=== PATIENT | male | born 1960 | race Caucasian/White ===

== ENCOUNTER 2024-01-01 15:26 | Inpatient (IN) | payer MEDICARE, MEDICAID ==
[~2024-01-01] VITALS: Ht 193 cm; Wt 67.1 kg
[2024-01-02] VITALS: BP 127/64; TEMP 97; O2SAT 93
[2024-01-02] MEDS ORDERED: GLUCOSE 4GM CHEW TABLET PO PRN (00:10)
[2024-01-02] MEDS ORDERED: DEXTROSE 50% 50ML SYRINGE IV PRN (00:10)
[2024-01-02] MEDS ORDERED: GLUCAGON INJ 1MG VIAL SC PRN (00:10)
[2024-01-02] MEDS: INSULIN LISPRO (NovoLOG) PER UNIT SC SCH (00:38)
[2024-01-02] MEDS: NS 1,000 ML IV SCH (00:39)
[2024-01-02] MEDS ORDERED: TRAZ-252 PO (00:47)
[2024-01-02] MEDS ORDERED: METF10004 PO (00:47)
[2024-01-02] MEDS ORDERED: LEVO50TA5 PO (00:47)
[2024-01-02] MEDS ORDERED: JARD1TAB3 PO (00:47)
[2024-01-02] MEDS ORDERED: ZOLO100T PO (00:47)
[2024-01-02] MEDS ORDERED: GABA-282 PO (00:47)
[2024-01-02] MEDS ORDERED: BUPR150T12 PO (00:47)
[2024-01-02] MEDS ORDERED: FERR1TAB8 PO (00:47)
[2024-01-02] MEDS ORDERED: OMEP-173 PO (00:47)
[2024-01-02] MEDS ORDERED: GLIP5TAB17 PO (00:47)
[2024-01-02] MEDS ORDERED: ASPI81TA26 PO (00:47)
[2024-01-02] MEDS ORDERED: VITA-158 PO (00:47)
[2024-01-02] MEDS ORDERED: ROSU20TA61 PO (00:47)
[2024-01-02] MEDS ORDERED: HOME MED LIST COMPLETE! XX SCH (00:50)
[2024-01-02 00:56] LABS: HEMATOCRIT 29.2 % (42.0-52.0); HEMOGLOBIN 9.1 g/dl (13.5-17.5); MEAN CORPUSCULAR HEMOGLOBIN 24.2 pg (27.0-33.0); MEAN CORPUSCULAR HGB CONC 31.2 g/dl (32.0-36.5); MEAN CORPUSCULAR VOLUME 77.7 fl (80.0-96.0); PLATELET COUNT, AUTOMATED 374 10^3/uL (150-450); RED BLOOD COUNT 3.76 10^6/uL (4.30-6.10)
[2024-01-02 01:08] LABS: INR 1.22
[2024-01-02 01:17] LABS: ALBUMIN 2.3 G/DL (3.2-5.2); ALKALINE PHOSPHATASE 101 U/L (46-116); ALT/SGPT 99 U/L (7.0-40); AST/SGOT 70 U/L (<34); BILIRUBIN,TOTAL 0.2 MG/DL (0.3-1.2); BLOOD UREA NITROGEN 34 MG/DL (9-23); CALCIUM LEVEL 8.2 MG/DL (8.3-10.6); CARBON DIOXIDE LEVEL 30 MMOL/L (20-31); CHLORIDE LEVEL 104 MMOL/L (98-107); CREATININE FOR GFR 1.05 MG/DL (0.70-1.30); GLOMERULAR FILTRATION RATE > 60.0 (>49); GLUCOSE, FASTING 194 MG/DL (74-106); POTASSIUM SERUM 4.7 MMOL/L (3.5-5.1); SODIUM LEVEL 137 MMOL/L (136-145); TOTAL PROTEIN 6.2 G/DL (5.7-8.2)
[2024-01-02 01:20] LABS: EOS % 0.2 % (0.0-3.0); LYMPH # 1.2 10^3/uL (1.5-5.0); LYMPH % 18.6 % (24.0-44.0); MONO # 0.4 10^3/uL (0.0-0.8); MONO % 6.8 % (2.0-8.0); NEUTROPHILS # 4.6 10^3/uL (1.5-8.5); NEUTROPHILS % 73.4 % (36.0-66.0)
[2024-01-02 01:24] LABS: PROCALCITONIN 0.16 ng/ml
[2024-01-02 01:36] LABS: ERYTHROCYTE SEDIMENTATION RATE 114 mm/hr (0-20)
[2024-01-02 01:46] LABS: PLATELET ESTIMATE NORMAL (NORMAL)
[2024-01-02] MEDS: PIPERACILLIN/TAZOBACTAM SOD 3.375 GM in D5W MINI-BAG PLUS 50 ML IV SCH (04:35)
[2024-01-02] MEDS: LINEZOLID 600 MG in IV 1 EA IV SCH (05:34)
[2024-01-02 06:00] VITALS: BP 101/54; TEMP 97.5; O2SAT 98
[2024-01-02 13:34] VITALS: BP 106/57; TEMP 97.5; O2SAT 100
[2024-01-02 22:00] VITALS: BP 104/57; TEMP 97.1; O2SAT 99
[2024-01-03 05:41] VITALS: BP 103/57; TEMP 97.4; O2SAT 98
[2024-01-03 07:18] LABS: HEMATOCRIT 30.3 % (42.0-52.0); HEMOGLOBIN 9.2 g/dl (13.5-17.5); MEAN CORPUSCULAR HEMOGLOBIN 23.4 pg (27.0-33.0); MEAN CORPUSCULAR HGB CONC 30.4 g/dl (32.0-36.5); MEAN CORPUSCULAR VOLUME 77.1 fl (80.0-96.0); PLATELET COUNT, AUTOMATED 351 10^3/uL (150-450); RED BLOOD COUNT 3.93 10^6/uL (4.30-6.10); WHITE BLOOD COUNT 6.8 10^3/uL (4.0-10.0)
[2024-01-03 07:44] LABS: ALBUMIN 2.3 G/DL (3.2-5.2); ALKALINE PHOSPHATASE 112 U/L (46-116); ALT/SGPT 81 U/L (7.0-40); AST/SGOT 55 U/L (<34); BILIRUBIN,TOTAL 0.3 MG/DL (0.3-1.2); BLOOD UREA NITROGEN 22 MG/DL (9-23); CALCIUM LEVEL 8.2 MG/DL (8.3-10.6); CARBON DIOXIDE LEVEL 28 MMOL/L (20-31); CHLORIDE LEVEL 105 MMOL/L (98-107); GLOMERULAR FILTRATION RATE > 60.0 (>49); GLUCOSE, FASTING 200 MG/DL (74-106); MAGNESIUM LEVEL 1.8 MG/DL (1.8-2.4); POTASSIUM SERUM 4.6 MMOL/L (3.5-5.1); SODIUM LEVEL 137 MMOL/L (136-145); TOTAL PROTEIN 6.1 G/DL (5.7-8.2)
[2024-01-03 10:51] VITALS: BP 126/66
[2024-01-03] MEDS ORDERED: LIDOCAINE 2% 100MG/5ML SDV (FOR ANES.) As Ordered ONE (11:03)
[2024-01-03] MEDS ORDERED: propofoL 200 MG/20 ML VIAL As Ordered ONE (11:03)
[2024-01-03] MEDS ORDERED: MIDAZOLAM INJ 2MG/2ML VIAL As Ordered ONE (11:03)
[2024-01-03] MEDS ORDERED: fentaNYL 100 MCG/2 ML INJECTION As Ordered ONE (11:03)
[2024-01-03] MEDS ORDERED: ceFAZolin 1GM VIAL As Ordered ONE (13:40)
[2024-01-03 14:06] VITALS: BP 121/63; TEMP 97.7; O2SAT 98
[2024-01-04] VITALS (9 sets, daily range): BP systolic 82–118; BP diastolic 60–68; TEMP 97.5–98; O2SAT 97–100
[2024-01-04 08:13] LABS: HEMATOCRIT 32.2 % (42.0-52.0); HEMOGLOBIN 9.7 g/dl (13.5-17.5)
[2024-01-04] MEDS ORDERED: ONDANSETRON 4MG 2ML VIAL As Ordered ONE (09:26)
[2024-01-04] MEDS ORDERED: KETOROLAC 60MG 2ML VIAL As Ordered ONE (09:26)
[2024-01-04] MEDS ORDERED: ROCURONIUM BROMIDE 50MG/5ML VIAL As Ordered ONE (10:17)
[2024-01-04] MEDS ORDERED: SUGAMMADEX SODIUM 500 MG/5 ML VIAL (BRIDION) As Ordered ONE (10:18)
[2024-01-04] MEDS: ceFAZolin 2 GM/D5W 50 ML IV BAG As Ordered ONE (12:40)
[2024-01-04] MEDS ORDERED: HYDROmorphone HCL 2MG/ML 1ML VIAL As Ordered ONE (12:49)
[2024-01-04] MEDS ORDERED: VASOPRESSIN INJ 20UNITS/ML 1ML VIAL As Ordered ONE (13:02)
[2024-01-04] MEDS ORDERED: PHENYLephrine 500MCG 5ML (100MCG/ML) SYRINGE As Ordered ONE (13:04)
[2024-01-04] MEDS ORDERED: ePHEDrine SULFATE 25 MG/5 ML(5MG/ML) SYRINGE As Ordered ONE (13:04)
[2024-01-04] MEDS ORDERED: KETAMINE HCL 200MG/20ML VIAL As Ordered ONE (13:22)
[2024-01-04] MEDS ORDERED: PHENYLEPHRINE 10MG/ML 1ML VIAL As Ordered ONE (13:48)
[2024-01-04] MEDS ORDERED: oxyCODONE 5MG TAB PO PRN (14:20)
[2024-01-04] MEDS ORDERED: diphenhydrAMINE 50MG/ML VIAL IV PRN (14:20)
[2024-01-04] MEDS ORDERED: METOCLOPRAMIDE INJ 10MG/2ML VIAL IV PRN (14:20)
[2024-01-04] MEDS ORDERED: HYDROMORPHONE HCL 0.5 MG/ 0.5 ML SYRINGE IV PRN (14:20)
[2024-01-04] MEDS ORDERED: fentaNYL 100 MCG/2 ML INJECTION IV PRN (14:20)
[2024-01-04] MEDS ORDERED: MEPERIDINE 25 MG/ML 1ML VIAL IV PRN (14:20)
[2024-01-04] MEDS ORDERED: ONDANSETRON 4MG 2ML VIAL IV PRN (14:20)
[2024-01-04] MEDS: MORPHINE 2 MG/ML 1ML VIAL IV PRN (18:03)
[2024-01-04] MEDS ORDERED: NALOXONE INJ 0.4MG/1ML VIAL IV PRN (18:55)
[2024-01-04] MEDS: HYDROMORPHONE HCL 0.5 MG/ 0.5 ML SYRINGE IV PRN (20:42)
[2024-01-05 02:00] VITALS: BP 106/61; TEMP 97.9; O2SAT 99
[2024-01-05] MEDS ORDERED: GLUCAGON INJ 1MG VIAL SC PRN (03:25)
[2024-01-05] MEDS ORDERED: DEXTROSE 50% 50ML SYRINGE IV PRN (03:25)
[2024-01-05] MEDS ORDERED: GLUCOSE 4GM CHEW TABLET PO PRN (03:25)
[2024-01-05 05:10] VITALS: BP 111/60; TEMP 97.7; O2SAT 99
[2024-01-05] MEDS ORDERED: PERCOCET 5MG/325MG TAB PO PRN ×2 (07:50)
[2024-01-05] MEDS: INSULIN LISPRO (NovoLOG) PER UNIT SC SCH ×2 (08:24)
[2024-01-05] MEDS: OMEPRAZOLE 20MG CAP PO SCH (08:25)
[2024-01-05] MEDS: FERROUS SULFATE 325MG TAB PO SCH (08:25)
[2024-01-05] MEDS: LEVOTHYROXINE 50MCG TABLET (0.05MG) PO SCH (08:25)
[2024-01-05] MEDS: ROSUVASTATIN 10 MG TAB (CRESTOR) PO SCH (08:25)
[2024-01-05] MEDS: ASPIRIN 81MG ENTERIC TABLET PO SCH (08:25)
[2024-01-05] MEDS: LEVEMIR (INSULIN DETEMIR) 1 UNITS/0.01ML SC ONE (08:25)
[2024-01-05] MEDS: ASCORBIC ACID 500 MG TAB PO SCH (08:25)
[2024-01-05] MEDS: PERCOCET 5MG/325MG TAB PO ONE (08:26)
[2024-01-05] MEDS ORDERED: PHENYLephrine 500MCG 5ML (100MCG/ML) SYRINGE ONE (08:32)
[2024-01-05] MEDS ORDERED: ePHEDrine SULFATE 25 MG/5 ML(5MG/ML) SYRINGE ONE (08:32)
[2024-01-05] MEDS ORDERED: GABAPENTIN 300 MG CAP PO SCH (09:00)
[2024-01-05] MEDS ORDERED: SERTRALINE 100 MG TAB PO SCH (09:00)
[2024-01-05] MEDS: glipiZIDE (GLUCOTROL) 5 MG TAB PO SCH (09:43)
[2024-01-05] MEDS: KETOROLAC 30 MG/ML 1ML VIAL IV ONE (09:43)
[2024-01-05 10:15] VITALS: BP 103/62; TEMP 97.9; O2SAT 99
[2024-01-05] MEDS ORDERED: ZOSY1SOL5 IV (10:19)
[2024-01-05] MEDS ORDERED: [UNRECOGNIZED DRUG - CODE] PO (10:19)
[2024-01-05] MEDS ORDERED: PERCOCET PO ×2 (10:20)
[2024-01-05] MEDS ORDERED: INSULIN LISPRO (NovoLOG) PER UNIT SC SCH (21:00)
== END 2024-01-05 14:45 | disposition other institution (70) | DRG 617 ==
LOC: M MS5PR 23:17
PROVIDERS: ADMIT Internal Medicine; ATTEND General Practice
PROC: 30233N1 Transfusion of Nonautologous Red Blood Cells into Peripheral Vein, Percutaneous Approach (ICD-10-PCS; 2024-01-04)
PROC: 30233J1 Transfusion of Nonautologous Serum Albumin into Peripheral Vein, Percutaneous Approach (ICD-10-PCS; 2024-01-04)
PROC: 0Y6J0Z3 Detachment at Left Lower Leg, Low, Open Approach (ICD-10-PCS; principal; 2024-01-04 08:00)
DX: E11.69 Type 2 diabetes mellitus with other specified complication (principal); M86.8X7 Other osteomyelitis, ankle and foot; L03.116 Cellulitis of left lower limb; L97.429 Non-pressure chronic ulcer of left heel and midfoot with unspecified severity; D62 Acute posthemorrhagic anemia; K21.9 Gastro-esophageal reflux disease without esophagitis; F32.A Depression, unspecified; E78.5 Hyperlipidemia, unspecified; E11.42 Type 2 diabetes mellitus with diabetic polyneuropathy; I73.9 Peripheral vascular disease, unspecified; E11.51 Type 2 diabetes mellitus with diabetic peripheral angiopathy without gangrene; Z87.891 Personal history of nicotine dependence; Z79.82 Long term (current) use of aspirin; Z79.890 Hormone replacement therapy; Z79.84 Long term (current) use of oral hypoglycemic drugs; Z79.899 Other long term (current) drug therapy; Z88.1 Allergy status to other antibiotic agents; I10 Essential (primary) hypertension

== ENCOUNTER 2024-01-05 11:42 | Inpatient (IN) | payer MEDICARE, MEDICAID ==
[~2024-01-05] VITALS: Ht 193 cm; Wt 72.5 kg
[~2024-01-05 11:42] MED LIST: ASPI81TA26 PO; BUPR150T12 PO; FERR1TAB8 PO; GABA-282 PO; GLIP5TAB17 PO; JARD1TAB3 PO; LEVO50TA5 PO; METF10004 PO; OMEP-173 PO; PERCOCET PO; ROSU20TA61 PO; TRAZ-252 PO; VITA-158 PO; ZOLO100T PO; ZOSY1SOL5 IV; [UNRECOGNIZED DRUG - CODE] PO
[2024-01-05 14:12] VITALS: BP 105/55; TEMP 97.3; O2SAT 100
[2024-01-05] MEDS ORDERED: MAALOX 30 ML SUSP *UDC PO PRN (14:20)
[2024-01-05] MEDS ORDERED: SIMETHICONE 80MG CHEW TAB PO PRN (14:20)
[2024-01-05] MEDS ORDERED: ONDANSETRON 4MG TAB PO PRN (14:20)
[2024-01-05] MEDS: GABAPENTIN 300 MG CAP PO SCH (17:34)
[2024-01-05] MEDS: PERCOCET 5MG/325MG TAB PO PRN (19:38)
[2024-01-05 20:00] VITALS: BP 99/54; TEMP 97.6; O2SAT 99
[2024-01-05] MEDS: traZODone 50 MG TAB PO SCH (20:48)
[2024-01-05] MEDS: metFORMIN (GLUCOPHAGE) 1000MG TABLET PO SCH (20:48)
[2024-01-06] VITALS (10 sets, daily range): BP systolic 95–119; BP diastolic 56–64; TEMP 97.1–98.6; O2SAT 97–100
[2024-01-06] MEDS: LEVOTHYROXINE 50MCG TABLET (0.05MG) PO SCH (06:17)
[2024-01-06 07:21] LABS: HEMATOCRIT 22.7 % (42.0-52.0); MEAN CORPUSCULAR HEMOGLOBIN 26.6 pg (27.0-33.0); MEAN CORPUSCULAR HGB CONC 32.6 g/dl (32.0-36.5); MEAN CORPUSCULAR VOLUME 81.7 fl (80.0-96.0); PLATELET COUNT, AUTOMATED 229 10^3/uL (150-450); RED BLOOD COUNT 2.78 10^6/uL (4.30-6.10); WHITE BLOOD COUNT 6.3 10^3/uL (4.0-10.0)
[2024-01-06 07:27] LABS: HEMOGLOBIN 7.4 g/dl (13.5-17.5)
[2024-01-06 07:38] LABS: BLOOD UREA NITROGEN 19 MG/DL (9-23); CALCIUM LEVEL 8.1 MG/DL (8.3-10.6); CARBON DIOXIDE LEVEL 29 MMOL/L (20-31); CHLORIDE LEVEL 105 MMOL/L (98-107); CREATININE FOR GFR 0.91 MG/DL (0.70-1.30); GLOMERULAR FILTRATION RATE > 60.0 (>49); GLUCOSE, FASTING 275 MG/DL (74-106); POTASSIUM SERUM 4.6 MMOL/L (3.5-5.1); SODIUM LEVEL 137 MMOL/L (136-145)
[2024-01-06] MEDS ORDERED: GLUCOSE 4GM CHEW TABLET PO PRN (08:05)
[2024-01-06] MEDS ORDERED: GLUCAGON INJ 1MG VIAL SC PRN (08:05)
[2024-01-06] MEDS ORDERED: DEXTROSE 50% 50ML SYRINGE IV PRN (08:05)
[2024-01-06] MEDS: FERROUS SULFATE 325MG TAB PO SCH (08:39)
[2024-01-06] MEDS: OMEPRAZOLE 20MG CAP PO SCH (08:39)
[2024-01-06] MEDS: buPROPion **XL** TABLET 150MG (WELLBUTRIN XL) PO SCH (08:40)
[2024-01-06] MEDS: ASPIRIN 81MG ENTERIC TABLET PO SCH (08:40)
[2024-01-06] MEDS: SERTRALINE 100 MG TAB PO SCH (08:40)
[2024-01-06] MEDS: ROSUVASTATIN 10 MG TAB (CRESTOR) PO SCH (08:40)
[2024-01-06] MEDS: DAPAGLIFLOZIN PROPANEDIOL 10MG TABLET (FARXIGA) PO SCH (08:40)
[2024-01-06] MEDS: ASCORBIC ACID 500 MG TAB PO SCH (08:40)
[2024-01-06 12:23] LABS: HEMATOCRIT 25.1 % (42.0-52.0)
[2024-01-06] MEDS: traZODone 25MG PER 1/2 TABLET PO SCH (20:45)
[2024-01-07 00:23] VITALS: BP 116/58; TEMP 97.7; O2SAT 99
[2024-01-07 06:00] VITALS: BP 115/62; TEMP 97.5; O2SAT 98
[2024-01-07] MEDS: MIRALAX *UNIT DOSE* 17GM PACKET PO PRN (13:11)
[2024-01-07 14:00] VITALS: BP 108/61; TEMP 97.5; O2SAT 97
[2024-01-07 20:00] VITALS: BP 117/61; TEMP 97.9; O2SAT 97
[2024-01-08 03:09] VITALS: BP 134/71; O2SAT 99
[2024-01-08 06:00] VITALS: BP 118/65; TEMP 97.4; O2SAT 96
[2024-01-08 06:14] LABS: HEMATOCRIT 31.7 % (42.0-52.0); MEAN CORPUSCULAR HEMOGLOBIN 26.5 pg (27.0-33.0); MEAN CORPUSCULAR HGB CONC 32.5 g/dl (32.0-36.5); MEAN CORPUSCULAR VOLUME 81.7 fl (80.0-96.0); PLATELET COUNT, AUTOMATED 240 10^3/uL (150-450); RED BLOOD COUNT 3.88 10^6/uL (4.30-6.10); WHITE BLOOD COUNT 7.2 10^3/uL (4.0-10.0)
[2024-01-08 06:19] LABS: HEMOGLOBIN 10.3 g/dl (13.5-17.5)
[2024-01-08 06:37] LABS: BLOOD UREA NITROGEN 24 MG/DL (9-23); CALCIUM LEVEL 8.7 MG/DL (8.3-10.6); CARBON DIOXIDE LEVEL 32 MMOL/L (20-31); CHLORIDE LEVEL 104 MMOL/L (98-107); CREATININE FOR GFR 0.88 MG/DL (0.70-1.30); GLOMERULAR FILTRATION RATE > 60.0 (>49); GLUCOSE, FASTING 204 MG/DL (74-106); POTASSIUM SERUM 4.5 MMOL/L (3.5-5.1); SODIUM LEVEL 140 MMOL/L (136-145)
[2024-01-08] MEDS: BISACODYL 5MG TAB PO PRN (09:08)
[2024-01-08 20:00] VITALS: BP 124/59; TEMP 97.1; O2SAT 98
[2024-01-08] MEDS: LEVEMIR (INSULIN DETEMIR) 1 UNITS/0.01ML SC SCH (21:39)
[2024-01-09 04:00] VITALS: BP 106/57; TEMP 97.3; O2SAT 96
[2024-01-09 14:00] VITALS: BP 112/63; TEMP 97.6; O2SAT 98
[2024-01-09 20:00] VITALS: BP 120/65; TEMP 97.8; O2SAT 99
[2024-01-10 05:25] VITALS: BP 112/64; TEMP 97.1; O2SAT 97
[2024-01-10] MEDS: MOM 30ML SUSPENSION UDC PO PRN (08:26)
[2024-01-10 14:00] VITALS: BP 119/62; TEMP 97.1; O2SAT 97
[2024-01-10 19:31] VITALS: BP 123/8; TEMP 97.6; O2SAT 97
[2024-01-11 06:00] VITALS: BP 109/63; TEMP 97.8; O2SAT 96
[2024-01-11] MEDS: INSULIN LISPRO (NovoLOG) PER UNIT SC SCH ×2 (11:49→21:00)
[2024-01-11 14:00] VITALS: BP 107/62; TEMP 98; O2SAT 98
[2024-01-11] MEDS ORDERED: BISACODYL 10MG SUPP PR PRN (17:00)
[2024-01-11] MEDS: MIRALAX *UNIT DOSE* 17GM PACKET PO SCH (17:16)
[2024-01-11 20:25] VITALS: BP 118/65; TEMP 97.8; O2SAT 96
[2024-01-11] MEDS: PERCOCET 5MG/325MG TAB PO PRN (20:36)
[2024-01-12 05:33] VITALS: BP 113/63; TEMP 97.6; O2SAT 96
[2024-01-12] MEDS: ACETAMINOPHEN TAB 650MG DOSE (2X325MG) PO PRN (09:34)
[2024-01-12 10:09] LABS: HEMATOCRIT 35.4 % (42.0-52.0); HEMOGLOBIN 11.2 g/dl (13.5-17.5); MEAN CORPUSCULAR HEMOGLOBIN 27.1 pg (27.0-33.0); MEAN CORPUSCULAR HGB CONC 31.6 g/dl (32.0-36.5); MEAN CORPUSCULAR VOLUME 85.5 fl (80.0-96.0); PLATELET COUNT, AUTOMATED 324 10^3/uL (150-450); RED BLOOD COUNT 4.14 10^6/uL (4.30-6.10); WHITE BLOOD COUNT 8.7 10^3/uL (4.0-10.0)
[2024-01-12 10:40] LABS: BLOOD UREA NITROGEN 23 MG/DL (9-23); CARBON DIOXIDE LEVEL 30 MMOL/L (20-31); CHLORIDE LEVEL 98 MMOL/L (98-107); CREATININE FOR GFR 0.96 MG/DL (0.70-1.30); GLOMERULAR FILTRATION RATE > 60.0 (>49); GLUCOSE, FASTING 296 MG/DL (74-106); POTASSIUM SERUM 4.6 MMOL/L (3.5-5.1); SODIUM LEVEL 134 MMOL/L (136-145)
[2024-01-12 14:00] VITALS: BP 108/60; TEMP 97.6; O2SAT 98
[2024-01-12] MEDS: GABAPENTIN 300 MG CAP PO SCH ×2 (17:11→20:12)
[2024-01-12 20:00] VITALS: BP 109/61; TEMP 98.1; O2SAT 97
[2024-01-13 06:00] VITALS: BP 107/61; TEMP 97.5; O2SAT 97
[2024-01-13] MEDS ORDERED: GABAPENTIN 300 MG CAP PO SCH (09:00)
[2024-01-13 14:00] VITALS: BP 101/58; TEMP 97.8; O2SAT 98
[2024-01-13 20:00] VITALS: BP 114/61; TEMP 98; O2SAT 99
[2024-01-14 06:00] VITALS: BP 102/60; TEMP 97.6; O2SAT 98
[2024-01-14] MEDS ORDERED: BACLOFEN 5MG PER 1/2 TABLET PO PRN (13:15)
[2024-01-14 14:00] VITALS: BP 90/54; TEMP 98.6; O2SAT 98
[2024-01-14 19:50] VITALS: BP 102/59; TEMP 97.7; O2SAT 97
[2024-01-14] MEDS: NYSTATIN 100,000 UNITS/GM TOPICAL PWD 15GM TOP SCH (20:19)
[2024-01-15 05:30] VITALS: BP 96/51; TEMP 97.5; O2SAT 99
[2024-01-15 14:22] VITALS: BP 105/57; TEMP 97; O2SAT 100
[2024-01-15] MEDS ORDERED: diphenhydrAMINE CREAM 30GM TOP PRN (14:35)
[2024-01-15 20:00] VITALS: BP 107/58; TEMP 97.5; O2SAT 98
[2024-01-16 06:00] VITALS: BP 106/59; TEMP 97.1; O2SAT 98
[2024-01-16 14:00] VITALS: BP 96/54; TEMP 98.2; O2SAT 95
[2024-01-16 20:00] VITALS: BP 104/58; TEMP 97.4; O2SAT 98
[2024-01-17 06:00] VITALS: BP 96/55; TEMP 97.4; O2SAT 98
[2024-01-17 14:00] VITALS: BP 112/59; TEMP 97.9; O2SAT 99
[2024-01-17 20:00] VITALS: BP 107/61; TEMP 98.1; O2SAT 98
[2024-01-18 06:00] VITALS: BP 105/59; TEMP 98.1; O2SAT 100
[2024-01-18 06:17] LABS: HEMATOCRIT 33.7 % (42.0-52.0); HEMOGLOBIN 10.7 g/dl (13.5-17.5); MEAN CORPUSCULAR HGB CONC 31.8 g/dl (32.0-36.5); MEAN CORPUSCULAR VOLUME 84.9 fl (80.0-96.0); PLATELET COUNT, AUTOMATED 235 10^3/uL (150-450); RED BLOOD COUNT 3.97 10^6/uL (4.30-6.10); WHITE BLOOD COUNT 4.7 10^3/uL (4.0-10.0)
[2024-01-18 06:46] LABS: BLOOD UREA NITROGEN 24 MG/DL (9-23); CALCIUM LEVEL 8.9 MG/DL (8.3-10.6); CARBON DIOXIDE LEVEL 32 MMOL/L (20-31); CHLORIDE LEVEL 105 MMOL/L (98-107); CREATININE FOR GFR 0.95 MG/DL (0.70-1.30); GLOMERULAR FILTRATION RATE > 60.0 (>49); GLUCOSE, FASTING 99 MG/DL (74-106); POTASSIUM SERUM 4.3 MMOL/L (3.5-5.1); SODIUM LEVEL 142 MMOL/L (136-145)
[2024-01-18] MEDS ORDERED: DIPHCR TOP (10:25)
[2024-01-18] MEDS ORDERED: NYST10006 TOP (10:25)
[2024-01-18] MEDS ORDERED: GABA-282 PO ×2 (10:25)
[2024-01-18] MEDS ORDERED: INSUDET SC (10:25)
== END 2024-01-18 14:00 | DRG 74 ==
LOC: M PM&R 14:12
PROVIDERS: ADMIT Physical Medicine & Rehabilitation; ATTEND Student in an Organized Health Care Education/Training Program
PROC: 30233N1 Transfusion of Nonautologous Red Blood Cells into Peripheral Vein, Percutaneous Approach (ICD-10-PCS; principal; 2024-01-06)
DX: E11.42 Type 2 diabetes mellitus with diabetic polyneuropathy (principal); M86.8X7 Other osteomyelitis, ankle and foot; N17.9 Acute kidney failure, unspecified; K21.9 Gastro-esophageal reflux disease without esophagitis; F32.A Depression, unspecified; E78.5 Hyperlipidemia, unspecified; E11.69 Type 2 diabetes mellitus with other specified complication; K59.00 Constipation, unspecified; R35.0 Frequency of micturition; B36.9 Superficial mycosis, unspecified; G89.21 Chronic pain due to trauma; E11.65 Type 2 diabetes mellitus with hyperglycemia; M24.562 Contracture, left knee; L89.152 Pressure ulcer of sacral region, stage 2; E11.51 Type 2 diabetes mellitus with diabetic peripheral angiopathy without gangrene; G54.6 Phantom limb syndrome with pain; D64.9 Anemia, unspecified; R53.1 Weakness; Z89.512 Acquired absence of left leg below knee; Z79.82 Long term (current) use of aspirin; Z79.84 Long term (current) use of oral hypoglycemic drugs; Z79.890 Hormone replacement therapy; Z79.899 Other long term (current) drug therapy; Z88.1 Allergy status to other antibiotic agents; Z74.1 Need for assistance with personal care; Z74.09 Other reduced mobility; Z87.891 Personal history of nicotine dependence

== ENCOUNTER → 2024-01-19 | Outpatient (REF) | payer MEDICAID, MEDICARE ==
[~2024-01-19] MED LIST changes: +DIPHCR TOP; +INSUDET SC; +NYST10006 TOP
[2024-01-19 07:37] LABS: HEMATOCRIT 34.3 % (42.0-52.0); HEMOGLOBIN 10.9 g/dl (13.5-17.5); MEAN CORPUSCULAR HEMOGLOBIN 27.4 pg (27.0-33.0); MEAN CORPUSCULAR HGB CONC 31.8 g/dl (32.0-36.5); MEAN CORPUSCULAR VOLUME 86.2 fl (80.0-96.0); PLATELET COUNT, AUTOMATED 252 10^3/uL (150-450); RED BLOOD COUNT 3.98 10^6/uL (4.30-6.10); WHITE BLOOD COUNT 6.2 10^3/uL (4.0-10.0)
[2024-01-19 08:04] LABS: BLOOD UREA NITROGEN 22 MG/DL (9-23); CALCIUM LEVEL 8.6 MG/DL (8.3-10.6); CARBON DIOXIDE LEVEL 32 MMOL/L (20-31); CHLORIDE LEVEL 104 MMOL/L (98-107); CREATININE FOR GFR 0.87 MG/DL (0.70-1.30); GLOMERULAR FILTRATION RATE > 60.0 (>49); GLUCOSE, FASTING 138 MG/DL (74-106); POTASSIUM SERUM 4.3 MMOL/L (3.5-5.1); SODIUM LEVEL 140 MMOL/L (136-145)
== END ==
LOC: SKLAB4 09:09
PROVIDERS: ATTEND Nurse Practitioner Family
DX: D64.9 Anemia, unspecified (principal)

== ENCOUNTER → 2024-01-26 | Outpatient (REF) ==
[2024-01-26 09:00] LABS: HEMOGLOBIN 11.6 g/dl (13.5-17.5); MEAN CORPUSCULAR HGB CONC 32.2 g/dl (32.0-36.5); MEAN CORPUSCULAR VOLUME 86.7 fl (80.0-96.0); PLATELET COUNT, AUTOMATED 208 10^3/uL (150-450); RED BLOOD COUNT 4.15 10^6/uL (4.30-6.10); WHITE BLOOD COUNT 3.9 10^3/uL (4.0-10.0)
[2024-01-26 09:25] LABS: BLOOD UREA NITROGEN 28 MG/DL (9-23); CALCIUM LEVEL 9.3 MG/DL (8.3-10.6); CARBON DIOXIDE LEVEL 33 MMOL/L (20-31); CHLORIDE LEVEL 106 MMOL/L (98-107); CREATININE FOR GFR 0.88 MG/DL (0.70-1.30); GLOMERULAR FILTRATION RATE > 60.0 (>49); GLUCOSE, FASTING 107 MG/DL (74-106); POTASSIUM SERUM 4.2 MMOL/L (3.5-5.1); SODIUM LEVEL 139 MMOL/L (136-145)
== END ==
LOC: SKLAB4 08:35
PROVIDERS: ATTEND Nurse Practitioner Family
DX: E78.5 Hyperlipidemia, unspecified (principal); E11.9 Type 2 diabetes mellitus without complications

== ENCOUNTER → 2024-02-09 | Outpatient (REF) ==
[2024-02-09 08:50] LABS: HEMATOCRIT 31.4 % (42.0-52.0); HEMOGLOBIN 9.8 g/dl (13.5-17.5); MEAN CORPUSCULAR HEMOGLOBIN 27.5 pg (27.0-33.0); MEAN CORPUSCULAR HGB CONC 31.2 g/dl (32.0-36.5); PLATELET COUNT, AUTOMATED 138 10^3/uL (150-450); RED BLOOD COUNT 3.57 10^6/uL (4.30-6.10); WHITE BLOOD COUNT 5.6 10^3/uL (4.0-10.0)
[2024-02-09 09:05] LABS: BLOOD UREA NITROGEN 36 MG/DL (9-23); CALCIUM LEVEL 8.5 MG/DL (8.3-10.6); CARBON DIOXIDE LEVEL 28 MMOL/L (20-31); CHLORIDE LEVEL 104 MMOL/L (98-107); CREATININE FOR GFR 0.87 MG/DL (0.70-1.30); GLOMERULAR FILTRATION RATE > 60.0 (>49); GLUCOSE, FASTING 112 MG/DL (74-106); POTASSIUM SERUM 4.3 MMOL/L (3.5-5.1); SODIUM LEVEL 139 MMOL/L (136-145)
== END ==
LOC: SKLAB4 08:04
PROVIDERS: ATTEND Nurse Practitioner Family
DX: E11.51 Type 2 diabetes mellitus with diabetic peripheral angiopathy without gangrene (principal); E78.5 Hyperlipidemia, unspecified

== ENCOUNTER → 2024-02-11 | Outpatient (REF) ==
[2024-02-11 13:54] LABS: BASO % 0.3 % (0.0-1.0); EOS # 0.2 10^3/uL (0.0-0.5); EOS % 3.2 % (0.0-3.0); HEMATOCRIT 33.8 % (42.0-52.0); HEMOGLOBIN 10.6 g/dl (13.5-17.5); LYMPH # 0.6 10^3/uL (1.5-5.0); LYMPH % 8.4 % (24.0-44.0); MEAN CORPUSCULAR HEMOGLOBIN 27.9 pg (27.0-33.0); MEAN CORPUSCULAR HGB CONC 31.4 g/dl (32.0-36.5); MEAN CORPUSCULAR VOLUME 88.9 fl (80.0-96.0); MONO # 0.7 10^3/uL (0.0-0.8); MONO % 9.1 % (2.0-8.0); NEUTROPHILS # 5.7 10^3/uL (1.5-8.5); NEUTROPHILS % 78.6 % (36.0-66.0); PLATELET COUNT, AUTOMATED 151 10^3/uL (150-450); WHITE BLOOD COUNT 7.3 10^3/uL (4.0-10.0)
[2024-02-11 14:03] LABS: ERYTHROCYTE SEDIMENTATION RATE 78 mm/hr (0-20)
[2024-02-11 14:25] LABS: TOTAL IRON BINDING CAPACITY 245 UG/DL (250-425)
[2024-02-11 14:26] LABS: ALBUMIN 3.4 G/DL (3.2-5.2); ALKALINE PHOSPHATASE 105 U/L (46-116); ALT/SGPT 18 U/L (7.0-40); AST/SGOT 17 U/L (<34); BILIRUBIN,TOTAL 0.5 MG/DL (0.3-1.2); BLOOD UREA NITROGEN 32 MG/DL (9-23); CALCIUM LEVEL 9.2 MG/DL (8.3-10.6); CARBON DIOXIDE LEVEL 32 MMOL/L (20-31); CHLORIDE LEVEL 101 MMOL/L (98-107); CREATININE FOR GFR 1.02 MG/DL (0.70-1.30); GLOMERULAR FILTRATION RATE > 60.0 (>49); GLUCOSE, FASTING 247 MG/DL (74-106); IRON (FE) 10 UG/DL (65-175); PERCENT SATURATION 4.1 % (19.7-50.0); POTASSIUM SERUM 5.1 MMOL/L (3.5-5.1); SODIUM LEVEL 139 MMOL/L (136-145)
[2024-02-11 14:28] LABS: FERRITIN 432.4 NG/ML (10.5-307.3)
== END ==
LOC: SKLAB4 12:56
PROVIDERS: ATTEND Nurse Practitioner Family
DX: R53.1 Weakness (principal); I95.9 Hypotension, unspecified; D64.9 Anemia, unspecified; M24.851 Other specific joint derangements of right hip, not elsewhere classified; I77.89 Other specified disorders of arteries and arterioles; Z89.512 Acquired absence of left leg below knee

== ENCOUNTER → 2024-02-11 | Outpatient (REF) | LOC: SKLAB4 10:59 | PROVIDERS: ATTEND Nurse Practitioner Family | DX: R32 Unspecified urinary incontinence (principal) ==

== ENCOUNTER → 2024-02-12 | Outpatient (REF) | payer MEDICAID, MEDICARE | LOC: SKLAB4 13:03 | PROVIDERS: ATTEND Nurse Practitioner Family | DX: D64.9 Anemia, unspecified (principal) ==

== ENCOUNTER → 2024-02-15 | Outpatient (REF) ==
[2024-02-15 12:11] LABS: HEMATOCRIT 31.2 % (42.0-52.0); MEAN CORPUSCULAR HEMOGLOBIN 27.9 pg (27.0-33.0); MEAN CORPUSCULAR HGB CONC 32.1 g/dl (32.0-36.5); MEAN CORPUSCULAR VOLUME 87.2 fl (80.0-96.0); PLATELET COUNT, AUTOMATED 203 10^3/uL (150-450); RED BLOOD COUNT 3.58 10^6/uL (4.30-6.10); WHITE BLOOD COUNT 4.4 10^3/uL (4.0-10.0)
[2024-02-15 12:40] LABS: BLOOD UREA NITROGEN 34 MG/DL (9-23); CALCIUM LEVEL 9.4 MG/DL (8.3-10.6); CARBON DIOXIDE LEVEL 29 MMOL/L (20-31); CHLORIDE LEVEL 105 MMOL/L (98-107); CREATININE FOR GFR 0.79 MG/DL (0.70-1.30); GLOMERULAR FILTRATION RATE > 60.0 (>49); GLUCOSE, FASTING 235 MG/DL (74-106); POTASSIUM SERUM 4.5 MMOL/L (3.5-5.1); SODIUM LEVEL 140 MMOL/L (136-145)
== END ==
LOC: SKLAB4 08:28
PROVIDERS: ATTEND Nurse Practitioner Family
DX: E11.22 Type 2 diabetes mellitus with diabetic chronic kidney disease (principal); N18.9 Chronic kidney disease, unspecified

== ENCOUNTER → 2024-02-15 | Outpatient (REF) | LOC: SKLAB4 14:17 | PROVIDERS: ATTEND Nurse Practitioner Family | DX: L98.9 Disorder of the skin and subcutaneous tissue, unspecified (principal) ==

== ENCOUNTER → 2024-02-17 | Outpatient (REF) | LOC: SKLAB4 12:18 | PROVIDERS: ATTEND Nurse Practitioner Family | DX: F22 Delusional disorders (principal); R41.82 Altered mental status, unspecified ==

== ENCOUNTER → 2024-02-24 | Outpatient (REF) ==
[2024-02-24 09:28] LABS: HEMOGLOBIN 9.6 g/dl (13.5-17.5); MEAN CORPUSCULAR HEMOGLOBIN 27.8 pg (27.0-33.0); MEAN CORPUSCULAR VOLUME 89.9 fl (80.0-96.0); PLATELET COUNT, AUTOMATED 232 10^3/uL (150-450); RED BLOOD COUNT 3.45 10^6/uL (4.30-6.10)
[2024-02-24 10:06] LABS: BLOOD UREA NITROGEN 32 MG/DL (9-23); CALCIUM LEVEL 8.9 MG/DL (8.3-10.6); CARBON DIOXIDE LEVEL 26 MMOL/L (20-31); CHLORIDE LEVEL 106 MMOL/L (98-107); CREATININE FOR GFR 0.77 MG/DL (0.70-1.30); GLOMERULAR FILTRATION RATE > 60.0 (>49); GLUCOSE, FASTING 178 MG/DL (74-106); POTASSIUM SERUM 4.7 MMOL/L (3.5-5.1); SODIUM LEVEL 140 MMOL/L (136-145)
== END ==
LOC: EEVIPCON → SKLAB4 09:44
PROVIDERS: ATTEND Nurse Practitioner Family
DX: L03.116 Cellulitis of left lower limb (principal)

== ENCOUNTER → 2024-04-19 | Outpatient (CLI) | payer MEDICARE, MEDICAID | LOC: M SOG 14:50 | PROVIDERS: ATTEND Physician Assistant | DX: M25.562 Pain in left knee (principal); Z89.511 Acquired absence of right leg below knee ==

== ENCOUNTER → 2024-04-25 | Outpatient (REF) | payer MEDICARE, MEDICAID ==
[2024-04-25 12:55] LABS: HEMOGLOBIN A1c 7.9 % (4.0-6.0)
== END ==
LOC: SKLAB4 07:00
PROVIDERS: ATTEND Internal Medicine
DX: E11.9 Type 2 diabetes mellitus without complications (principal)

== ENCOUNTER → 2024-05-25 | Outpatient (REF) | payer MEDICAID, MEDICARE ==
[2024-05-25 11:43] LABS: HEMOGLOBIN A1c 7.9 % (4.0-6.0)
== END ==
LOC: SKLAB4 08:19
PROVIDERS: ATTEND Internal Medicine
DX: E11.9 Type 2 diabetes mellitus without complications (principal)

== ENCOUNTER → 2024-06-17 | Outpatient (REF) | payer MEDICARE, MEDICAID ==
[~2024-06-17] MED LIST changes: +PIPE3.3729 IV; -ZOSY1SOL5 IV
[2024-06-17 12:11] LABS: CHOLESTEROL RISK RATIO 3.13 (<5); HDL CHOLESTEROL 39.2 MG/DL (>40); LDL CHOLESTEROL 66.4 MG/DL (<100); NON-HDL-C 83.8 MG/DL
== END ==
LOC: SKLAB4 06-16 09:12
PROVIDERS: ATTEND Internal Medicine
DX: E78.5 Hyperlipidemia, unspecified (principal)

== ENCOUNTER → 2024-06-25 | Outpatient (REF) | payer MEDICARE, MEDICAID ==
[2024-06-25 11:51] LABS: BASO % 0.4 % (0.0-1.0); EOS # 0.2 10^3/uL (0.0-0.5); EOS % 3.2 % (0.0-3.0); HEMATOCRIT 32.9 % (42.0-52.0); HEMOGLOBIN 10.6 g/dl (13.5-17.5); LYMPH % 18.9 % (24.0-44.0); MEAN CORPUSCULAR HEMOGLOBIN 27.6 pg (27.0-33.0); MEAN CORPUSCULAR HGB CONC 32.2 g/dl (32.0-36.5); MEAN CORPUSCULAR VOLUME 85.7 fl (80.0-96.0); MONO # 0.4 10^3/uL (0.0-0.8); NEUTROPHILS # 3.5 10^3/uL (1.5-8.5); NEUTROPHILS % 70.3 % (36.0-66.0); PLATELET COUNT, AUTOMATED 159 10^3/uL (150-450); RED BLOOD COUNT 3.84 10^6/uL (4.30-6.10)
[2024-06-25 12:16] LABS: BLOOD UREA NITROGEN 40 MG/DL (9-23); CALCIUM LEVEL 9.1 MG/DL (8.3-10.6); CARBON DIOXIDE LEVEL 29 MMOL/L (20-31); CHLORIDE LEVEL 104 MMOL/L (98-107); CREATININE FOR GFR 0.96 MG/DL (0.70-1.30); GLOMERULAR FILTRATION RATE > 60.0 (>49); GLUCOSE, FASTING 289 MG/DL (74-106); POTASSIUM SERUM 4.7 MMOL/L (3.5-5.1); SODIUM LEVEL 138 MMOL/L (136-145)
== END ==
LOC: SKLAB4 10:41
PROVIDERS: ATTEND Internal Medicine
DX: R11.2 Nausea with vomiting, unspecified (principal); R50.9 Fever, unspecified

== ENCOUNTER → 2024-07-11 | Outpatient (REF) | payer MEDICARE, MEDICAID ==
[2024-07-11 11:15] LABS: BASO % 0.2 % (0.0-1.0); EOS # 0.2 10^3/uL (0.0-0.5); EOS % 3.6 % (0.0-3.0); LYMPH # 0.5 10^3/uL (1.5-5.0); LYMPH % 12.8 % (24.0-44.0); MEAN CORPUSCULAR HGB CONC 32.4 g/dl (32.0-36.5); MEAN CORPUSCULAR VOLUME 86.5 fl (80.0-96.0); MONO # 0.6 10^3/uL (0.0-0.8); NEUTROPHILS # 2.9 10^3/uL (1.5-8.5); NEUTROPHILS % 69.2 % (36.0-66.0); PLATELET COUNT, AUTOMATED 123 10^3/uL (150-450); RED BLOOD COUNT 3.93 10^6/uL (4.30-6.10); WHITE BLOOD COUNT 4.2 10^3/uL (4.0-10.0)
[2024-07-11 11:34] LABS: ALBUMIN 3.4 G/DL (3.2-5.2); ALKALINE PHOSPHATASE 80 U/L (46-116); ALT/SGPT 18 U/L (7.0-40); AST/SGOT 13 U/L (<34); BILIRUBIN,TOTAL 0.3 MG/DL (0.3-1.2); BLOOD UREA NITROGEN 36 MG/DL (9-23); CARBON DIOXIDE LEVEL 31 MMOL/L (20-31); CHLORIDE LEVEL 100 MMOL/L (98-107); CREATININE FOR GFR 0.99 MG/DL (0.70-1.30); GLOMERULAR FILTRATION RATE > 60.0 (>49); GLUCOSE, FASTING 344 MG/DL (74-106); POTASSIUM SERUM 4.3 MMOL/L (3.5-5.1); SODIUM LEVEL 134 MMOL/L (136-145); TOTAL PROTEIN 6.6 G/DL (5.7-8.2)
== END ==
LOC: SKLAB4 09:10
PROVIDERS: ATTEND Internal Medicine
DX: U07.1 COVID-19 (principal); Z79.899 Other long term (current) drug therapy

== ENCOUNTER → 2024-08-18 | Outpatient (REF) | payer MEDICARE, MEDICAID ==
[2024-08-18 10:16] LABS: HEMOGLOBIN A1c 8.8 % (4.0-6.0)
== END ==
LOC: SKLAB4 07:00
PROVIDERS: ATTEND Internal Medicine
DX: E05.90 Thyrotoxicosis, unspecified without thyrotoxic crisis or storm (principal); E11.9 Type 2 diabetes mellitus without complications

== ENCOUNTER → 2024-08-26 | Outpatient (REF) | payer MEDICARE, MEDICAID ==
[~2024-08-26] MED LIST changes: +ACET1TAB55 PO; +ASCO500T PO; +ASPI-615 PO; +BACTDSTA PO; +CYCL-707 PO; +DOXY100C3 PO; +FERR325T3 PO; +GABA-1490 PO; +GLUC1KIT IM; +METF-877 PO; +MIDO10TA PO; +MIDO5TA PO; +MILKSUS3 PO; +NEUR300C PO; +ONDA-83 PO; +OXYC-517 PO; +RISATAB3 PO; +SENN-186 PO; +SYNT50TA PO; +TRAZ-257 PO; +TRUL10IN SC; +WELLTAB38 PO
[2024-08-26 15:18] LABS: BASO % 0.2 % (0.0-1.0); EOS # 0.1 10^3/uL (0.0-0.5); EOS % 0.8 % (0.0-3.0); HEMATOCRIT 34.6 % (42.0-52.0); HEMOGLOBIN 11.2 g/dl (13.5-17.5); LYMPH # 0.8 10^3/uL (1.5-5.0); LYMPH % 8.7 % (24.0-44.0); MEAN CORPUSCULAR HEMOGLOBIN 28.1 pg (27.0-33.0); MEAN CORPUSCULAR HGB CONC 32.4 g/dl (32.0-36.5); MEAN CORPUSCULAR VOLUME 86.7 fl (80.0-96.0); MONO # 0.9 10^3/uL (0.0-0.8); MONO % 9.6 % (2.0-8.0); NEUTROPHILS # 7.6 10^3/uL (1.5-8.5); NEUTROPHILS % 80.4 % (36.0-66.0); PLATELET COUNT, AUTOMATED 140 10^3/uL (150-450); RED BLOOD COUNT 3.99 10^6/uL (4.30-6.10); WHITE BLOOD COUNT 9.5 10^3/uL (4.0-10.0)
[2024-08-26 15:33] LABS: BLOOD UREA NITROGEN 24 MG/DL (9-23); CALCIUM LEVEL 8.8 MG/DL (8.3-10.6); CARBON DIOXIDE LEVEL 26 MMOL/L (20-31); CHLORIDE LEVEL 104 MMOL/L (98-107); CREATININE FOR GFR 1.03 MG/DL (0.70-1.30); GLOMERULAR FILTRATION RATE > 60.0 (>49); GLUCOSE, FASTING 254 MG/DL (74-106); POTASSIUM SERUM 4.4 MMOL/L (3.5-5.1); SODIUM LEVEL 134 MMOL/L (136-145)
== END ==
LOC: SKLAB4 13:48
PROVIDERS: ATTEND Internal Medicine
DX: L03.317 Cellulitis of buttock (principal)

== ENCOUNTER → 2024-08-28 | Outpatient (REF) ==
[~2024-08-28] MED LIST changes: -ACET1TAB55 PO; -ASCO500T PO; -ASPI-615 PO; -BACTDSTA PO; -CYCL-707 PO; -DOXY100C3 PO; -FERR325T3 PO; -GABA-1490 PO; -GLUC1KIT IM; -METF-877 PO; -MIDO10TA PO; -MIDO5TA PO; -MILKSUS3 PO; -NEUR300C PO; -ONDA-83 PO; -OXYC-517 PO; -RISATAB3 PO; -SENN-186 PO; -SYNT50TA PO; -TRAZ-257 PO; -TRUL10IN SC; -WELLTAB38 PO
[2024-08-28 13:48] LABS: BASO % 0.2 % (0.0-1.0); EOS # 0.1 10^3/uL (0.0-0.5); EOS % 0.9 % (0.0-3.0); HEMATOCRIT 34.2 % (42.0-52.0); HEMOGLOBIN 11.3 g/dl (13.5-17.5); LYMPH # 0.6 10^3/uL (1.5-5.0); LYMPH % 6.7 % (24.0-44.0); MEAN CORPUSCULAR HEMOGLOBIN 28.3 pg (27.0-33.0); MEAN CORPUSCULAR VOLUME 85.7 fl (80.0-96.0); MONO # 0.8 10^3/uL (0.0-0.8); NEUTROPHILS # 7.3 10^3/uL (1.5-8.5); PLATELET COUNT, AUTOMATED 138 10^3/uL (150-450); RED BLOOD COUNT 3.99 10^6/uL (4.30-6.10); WHITE BLOOD COUNT 8.8 10^3/uL (4.0-10.0)
[2024-08-28 14:13] LABS: CALCIUM LEVEL 8.5 MG/DL (8.3-10.6); CREATININE FOR GFR 1.5 MG/DL (0.70-1.30); GLOMERULAR FILTRATION RATE 50.5 (>49); POTASSIUM SERUM 4.4 MMOL/L (3.5-5.1)
== END ==
LOC: SKLAB4 08:40
PROVIDERS: ATTEND Internal Medicine
DX: R11.2 Nausea with vomiting, unspecified (principal); R50.9 Fever, unspecified

== ENCOUNTER 2024-08-29 22:36 | Emergency (ER) | payer MEDICARE, MEDICAID ==
[~2024-08-29] VITALS: Ht 193 cm; Wt 92.9 kg
[~2024-08-29 22:36] MED LIST changes: -ACET1TAB55 PO; -ASCO500T PO; -ASPI-615 PO; -BACTDSTA PO; -CYCL-707 PO; -DOXY100C3 PO; -FERR325T3 PO; -GABA-1490 PO; -GLUC1KIT IM; -METF-877 PO; -MIDO10TA PO; -MIDO5TA PO; -MILKSUS3 PO; -NEUR300C PO; -ONDA-83 PO; -OXYC-517 PO; -RISATAB3 PO; -SENN-186 PO; -SYNT50TA PO; -TRAZ-257 PO; -TRUL10IN SC; -WELLTAB38 PO
[2024-08-29 23:21] LABS: BASO % 0.1 % (0.0-1.0); EOS # 0.1 10^3/uL (0.0-0.5); EOS % 0.7 % (0.0-3.0); HEMATOCRIT 33.6 % (42.0-52.0); LYMPH # 0.6 10^3/uL (1.5-5.0); LYMPH % 6.8 % (24.0-44.0); MEAN CORPUSCULAR HEMOGLOBIN 27.8 pg (27.0-33.0); MEAN CORPUSCULAR HGB CONC 32.7 g/dl (32.0-36.5); MEAN CORPUSCULAR VOLUME 85.1 fl (80.0-96.0); MONO # 0.7 10^3/uL (0.0-0.8); MONO % 8.6 % (2.0-8.0); NEUTROPHILS # 6.8 10^3/uL (1.5-8.5); NEUTROPHILS % 83.4 % (36.0-66.0); PLATELET COUNT, AUTOMATED 172 10^3/uL (150-450); RED BLOOD COUNT 3.95 10^6/uL (4.30-6.10); WHITE BLOOD COUNT 8.2 10^3/uL (4.0-10.0)
[2024-08-29 23:46] LABS: ERYTHROCYTE SEDIMENTATION RATE 102 mm/hr (0-20)
[2024-08-29 23:49] LABS: ALBUMIN 2.8 G/DL (3.2-5.2); BILIRUBIN,TOTAL 0.2 MG/DL (0.3-1.2); CALCIUM LEVEL 8.9 MG/DL (8.3-10.6); CREATININE FOR GFR 1.55 MG/DL (0.70-1.30); GLOMERULAR FILTRATION RATE 48.6 (>49); TOTAL PROTEIN 6.7 G/DL (5.7-8.2)
[2024-08-30 00:33] LABS: C REACTIVE PROTEIN QUANTITATIV 32.8 MG/DL (<1.0)
[2024-08-30] MEDS ORDERED: HEPARIN SOD (PORCINE) 5000UNITS/ML 1ML VIAL/SYRINGE IV PRN (03:45)
[2024-08-30] MEDS ORDERED: HEPARIN DRIP 25,000 UNITS in IV 1 EA IV SCH (03:45)
[2024-08-30] MEDS: NS 1,000 ML IV ONE (04:15)
[2024-08-30] MEDS ORDERED: FERR325T3 PO (04:45)
[2024-08-30] MEDS ORDERED: MIDO5TA PO (04:45)
[2024-08-30] MEDS ORDERED: OXYC-517 PO (04:45)
[2024-08-30] MEDS ORDERED: RISATAB3 PO (04:45)
[2024-08-30] MEDS ORDERED: MILKSUS3 PO (04:45)
[2024-08-30] MEDS ORDERED: METF-877 PO (04:45)
[2024-08-30] MEDS ORDERED: NEUR300C PO (04:55)
[2024-08-30] MEDS ORDERED: GABA-1490 PO (04:55)
[2024-08-30] MEDS ORDERED: HOME MED LIST COMPLETE! XX SCH (04:55)
[2024-08-30] MEDS ORDERED: CYCL-707 PO (04:55)
[2024-08-30] MEDS ORDERED: TRUL10IN SC (04:55)
[2024-08-30] MEDS ORDERED: WELLTAB38 PO (04:55)
[2024-08-30] MEDS ORDERED: ASCO500T PO (04:55)
[2024-08-30] MEDS ORDERED: SYNT50TA PO (04:55)
[2024-08-30] MEDS ORDERED: BACTDSTA PO (04:55)
[2024-08-30] MEDS ORDERED: ASPI-615 PO (04:55)
[2024-08-30] MEDS ORDERED: SENN-186 PO (04:55)
[2024-08-30] MEDS ORDERED: TRAZ-257 PO (04:55)
[2024-08-30 05:07] LABS: HEMATOCRIT 31.4 % (42.0-52.0); HEMOGLOBIN 10.3 g/dl (13.5-17.5); MEAN CORPUSCULAR HGB CONC 32.8 g/dl (32.0-36.5); MEAN CORPUSCULAR VOLUME 85.3 fl (80.0-96.0); PLATELET COUNT, AUTOMATED 152 10^3/uL (150-450); RED BLOOD COUNT 3.68 10^6/uL (4.30-6.10); WHITE BLOOD COUNT 7.7 10^3/uL (4.0-10.0)
[2024-08-30 09:25] VITALS: BP 113/60; TEMP 98.8; O2SAT 94
[2024-08-31] MEDS ORDERED: ACET1TAB55 PO (12:36)
[2024-08-31] MEDS ORDERED: ONDA-83 PO (12:36)
[2024-08-31] MEDS ORDERED: GLUC1KIT IM (12:36)
[2024-08-31] MEDS ORDERED: MIDO10TA PO (14:22)
[2024-08-31] MEDS ORDERED: DOXY100C3 PO (14:22)
== END 2024-08-30 09:42 | disposition home or self-care (01) ==
LOC: M ED 22:36
DX: Z71.1 Person with feared health complaint in whom no diagnosis is made (principal); E11.9 Type 2 diabetes mellitus without complications; E78.5 Hyperlipidemia, unspecified; Z88.8 Allergy status to other drugs, medicaments and biological substances; Z79.1 Long term (current) use of non-steroidal anti-inflammatories (NSAID); Z79.84 Long term (current) use of oral hypoglycemic drugs; Z79.899 Other long term (current) drug therapy

== ENCOUNTER → 2024-08-29 | Outpatient (REF) | payer MEDICARE, MEDICAID ==
[~2024-08-29] MED LIST changes: +ACET1TAB55 PO; +ASCO500T PO; +ASPI-615 PO; +BACTDSTA PO; +CYCL-707 PO; +DOXY100C3 PO; +FERR325T3 PO; +GABA-1172 PO; +GABA-1490 PO; -GABA-282 PO; +GLUC1KIT IM; +METF-877 PO; +MIDO10TA PO; +MIDO5TA PO; +MILKSUS3 PO; +NEUR300C PO; +ONDA-83 PO; +OXYC-517 PO; +RISATAB3 PO; -ROSU20TA61 PO; +ROSU20TA86 PO; +SENN-186 PO; +SYNT50TA PO; +TRAZ-257 PO; +TRUL10IN SC; +WELLTAB38 PO
== END ==
LOC: SKLAB4 11:18
PROVIDERS: ATTEND Internal Medicine
DX: L02.31 Cutaneous abscess of buttock (principal)

== ENCOUNTER 2024-08-31 10:39 | Inpatient (IN) | payer MEDICARE, MEDICAID ==
[~2024-08-31 10:39] MED LIST changes: +ASCO500T PO; +ASPI-615 PO; +BACTDSTA PO; +CYCL-707 PO; +FERR325T3 PO; +GABA-1490 PO; +METF-877 PO; +MIDO5TA PO; +MILKSUS3 PO; +NEUR300C PO; +OXYC-517 PO; +RISATAB3 PO; +SENN-186 PO; +SYNT50TA PO; +TRAZ-257 PO; +TRUL10IN SC; +WELLTAB38 PO
[2024-08-31 11:24] LABS: BASO % 0.2 % (0.0-1.0); HEMATOCRIT 32.1 % (42.0-52.0); HEMOGLOBIN 10.1 g/dl (13.5-17.5); LYMPH # 0.6 10^3/uL (1.5-5.0); LYMPH % 12.6 % (24.0-44.0); MEAN CORPUSCULAR HEMOGLOBIN 27.4 pg (27.0-33.0); MEAN CORPUSCULAR HGB CONC 31.5 g/dl (32.0-36.5); MEAN CORPUSCULAR VOLUME 87.2 fl (80.0-96.0); MONO # 0.4 10^3/uL (0.0-0.8); MONO % 8.7 % (2.0-8.0); NEUTROPHILS % 78.1 % (36.0-66.0); PLATELET COUNT, AUTOMATED 159 10^3/uL (150-450); RED BLOOD COUNT 3.68 10^6/uL (4.30-6.10); WHITE BLOOD COUNT 5.1 10^3/uL (4.0-10.0)
[2024-08-31 11:45] LABS: ERYTHROCYTE SEDIMENTATION RATE 83 mm/hr (0-20)
[2024-08-31 11:46] LABS: CALCIUM LEVEL 9.2 MG/DL (8.3-10.6); CREATININE FOR GFR 1.32 MG/DL (0.70-1.30); GLOMERULAR FILTRATION RATE 58.5 (>49); POTASSIUM SERUM 4.6 MMOL/L (3.5-5.1)
[2024-08-31] MEDS ORDERED: GLUC1KIT IM (12:36)
[2024-08-31] MEDS ORDERED: ACET1TAB55 PO (12:36)
[2024-08-31] MEDS ORDERED: ONDA-83 PO (12:36)
[2024-08-31] MEDS: cefTRIAXone SOD 2 GM in D5W MINI-BAG PLUS 50 ML IV ONE (13:26)
[2024-08-31] MEDS ORDERED: GLUCOSE 4 GM CHEW PO PRN (13:40)
[2024-08-31] MEDS ORDERED: DEXTROSE 50% 50ML SYRINGE IV PRN (13:40)
[2024-08-31] MEDS ORDERED: GLUCAGON INJ 1MG VIAL SC PRN (13:40)
[2024-08-31] MEDS ORDERED: DOXY100C3 PO (14:22)
[2024-08-31] MEDS ORDERED: MIDO10TA PO (14:22)
[2024-08-31] MEDS ORDERED: HOME MED LIST COMPLETE! XX SCH (14:25)
[2024-08-31 14:42] LABS: PROCALCITONIN 0.26 ng/ml
[2024-08-31 15:39] VITALS: BP 147/77; TEMP 97.8; O2SAT 98
[2024-08-31] MEDS: ENOXAPARIN 40MG/0.4ML SYRINGE (J1650 PER 10MG) SC SCH (15:54)
[2024-08-31] MEDS ORDERED: ONDANSETRON 4MG TAB PO PRN (16:40)
[2024-08-31] MEDS ORDERED: oxyCODONE 5MG TAB PO PRN (16:40)
[2024-08-31] MEDS: INSULIN LISPRO (NovoLOG) PER UNIT SC SCH ×2 (17:07→21:00)
[2024-08-31] MEDS: DAPTOmycin 500 MG in NS 50 ML IV SCH (17:32)
[2024-08-31] MEDS: MIRALAX *UNIT DOSE* 17GM PACKET PO PRN (17:32)
[2024-08-31] MEDS: GABAPENTIN 300 MG CAP PO SCH ×2 (17:32→21:37)
[2024-08-31] MEDS: MOM 30ML SUSPENSION UDC PO PRN (17:32)
[2024-08-31] MEDS: SENNA 8.6 MG TAB (SENOKOT) PO PRN (17:33)
[2024-08-31] MEDS: ACETAMINOPHEN 325 MG TAB PO PRN (17:33)
[2024-08-31 20:50] VITALS: BP 127/61; TEMP 97.5; O2SAT 95
[2024-08-31] MEDS: LACTOBACILLUS ACIDOPHILUS CAP (BACID) PO SCH (21:36)
[2024-08-31] MEDS: traZODone 100 MG TAB PO SCH (21:37)
[2024-08-31] MEDS: CYCLOBENZAPRINE 10MG TABLET PO SCH (21:37)
[2024-09-01 03:20] VITALS: BP 125/61; TEMP 97.5; O2SAT 93
[2024-09-01 05:51] LABS: HEMATOCRIT 32.7 % (42.0-52.0); HEMOGLOBIN 10.5 g/dl (13.5-17.5); MEAN CORPUSCULAR HEMOGLOBIN 27.9 pg (27.0-33.0); MEAN CORPUSCULAR HGB CONC 32.1 g/dl (32.0-36.5); MEAN CORPUSCULAR VOLUME 86.7 fl (80.0-96.0); PLATELET COUNT, AUTOMATED 180 10^3/uL (150-450); RED BLOOD COUNT 3.77 10^6/uL (4.30-6.10); WHITE BLOOD COUNT 3.9 10^3/uL (4.0-10.0)
[2024-09-01] MEDS: LEVOTHYROXINE 50MCG TABLET (0.05MG) PO SCH (06:11)
[2024-09-01] MEDS: FERROUS SULFATE 325MG TAB PO SCH (06:12)
[2024-09-01 06:20] LABS: BLOOD UREA NITROGEN 26 MG/DL (9-23); CALCIUM LEVEL 9.4 MG/DL (8.3-10.6); CARBON DIOXIDE LEVEL 29 MMOL/L (20-31); CHLORIDE LEVEL 105 MMOL/L (98-107); CREATININE FOR GFR 1.15 MG/DL (0.70-1.30); GLOMERULAR FILTRATION RATE > 60.0 (>49); GLUCOSE, FASTING 140 MG/DL (74-106); POTASSIUM SERUM 4.6 MMOL/L (3.5-5.1); SODIUM LEVEL 138 MMOL/L (136-145)
[2024-09-01] MEDS: MIDODRINE 5 MG TAB PO SCH (09:55)
[2024-09-01] MEDS: ASPIRIN 81MG ENTERIC TABLET PO SCH (09:56)
[2024-09-01] MEDS: SERTRALINE 100 MG TAB PO SCH (09:56)
[2024-09-01] MEDS: buPROPion **XL** TABLET 150MG (WELLBUTRIN XL) PO SCH (09:56)
[2024-09-01] MEDS: ROSUVASTATIN 10 MG TAB (CRESTOR) PO SCH (09:56)
[2024-09-01] MEDS: BISACODYL 10MG SUPP PR ONE (09:57)
[2024-09-01 12:00] VITALS: BP 131/72; TEMP 97.7; O2SAT 96
[2024-09-01] MEDS: cefTRIAXone SOD 2 GM in D5W MINI-BAG PLUS 50 ML IV SCH (13:03)
[2024-09-01] MEDS: FLUBLOK(EGGFREE) TRIVAL(24-25) VACCINE PF 0.5ML SYRINGE 18YRS & OLDER IM.IMMUN ONE (15:34)
[2024-09-01 20:06] VITALS: BP 130/70; TEMP 97.9; O2SAT 95
[2024-09-02 03:42] VITALS: BP 129/69; TEMP 97.5; O2SAT 94
[2024-09-02 08:12] LABS: BASO % 0.5 % (0.0-1.0); HEMOGLOBIN 11.3 g/dl (13.5-17.5); LYMPH % 22.1 % (24.0-44.0); MEAN CORPUSCULAR HEMOGLOBIN 27.4 pg (27.0-33.0); MEAN CORPUSCULAR HGB CONC 32.3 g/dl (32.0-36.5); MONO # 0.4 10^3/uL (0.0-0.8); NEUTROPHILS # 2.9 10^3/uL (1.5-8.5); NEUTROPHILS % 66.7 % (36.0-66.0); PLATELET COUNT, AUTOMATED 212 10^3/uL (150-450); RED BLOOD COUNT 4.12 10^6/uL (4.30-6.10); WHITE BLOOD COUNT 4.3 10^3/uL (4.0-10.0)
[2024-09-02 08:48] LABS: BLOOD UREA NITROGEN 25 MG/DL (9-23); CALCIUM LEVEL 9.5 MG/DL (8.3-10.6); CARBON DIOXIDE LEVEL 29 MMOL/L (20-31); CHLORIDE LEVEL 105 MMOL/L (98-107); GLOMERULAR FILTRATION RATE > 60.0 (>49); GLUCOSE, FASTING 186 MG/DL (74-106); POTASSIUM SERUM 4.4 MMOL/L (3.5-5.1); SODIUM LEVEL 137 MMOL/L (136-145)
[2024-09-02 12:00] VITALS: BP 123/72; TEMP 97.7; O2SAT 95
[2024-09-02] MEDS ORDERED: LIDOCAINE 1% MDV 20ML VIAL As Ordered ONE (15:14)
[2024-09-02 20:00] VITALS: BP 121/73; TEMP 97.5; O2SAT 97
[2024-09-03 04:00] VITALS: BP 117/63; TEMP 97.2; O2SAT 98
[2024-09-03 06:10] LABS: BASO % 0.4 % (0.0-1.0); HEMATOCRIT 35.1 % (42.0-52.0); HEMOGLOBIN 11.6 g/dl (13.5-17.5); LYMPH # 1.2 10^3/uL (1.5-5.0); LYMPH % 25.6 % (24.0-44.0); MEAN CORPUSCULAR VOLUME 84.8 fl (80.0-96.0); MONO # 0.4 10^3/uL (0.0-0.8); MONO % 8.9 % (2.0-8.0); NEUTROPHILS % 64.3 % (36.0-66.0); PLATELET COUNT, AUTOMATED 248 10^3/uL (150-450); RED BLOOD COUNT 4.14 10^6/uL (4.30-6.10); WHITE BLOOD COUNT 4.7 10^3/uL (4.0-10.0)
[2024-09-03 06:38] LABS: BLOOD UREA NITROGEN 29 MG/DL (9-23); CALCIUM LEVEL 8.9 MG/DL (8.3-10.6); CARBON DIOXIDE LEVEL 26 MMOL/L (20-31); CHLORIDE LEVEL 103 MMOL/L (98-107); CREATININE FOR GFR 1.11 MG/DL (0.70-1.30); GLOMERULAR FILTRATION RATE > 60.0 (>49); GLUCOSE, FASTING 202 MG/DL (74-106); POTASSIUM SERUM 4.4 MMOL/L (3.5-5.1); SODIUM LEVEL 135 MMOL/L (136-145)
[2024-09-03 12:00] VITALS: BP 120/71; TEMP 97.7; O2SAT 96
[2024-09-03 20:00] VITALS: BP 111/68; TEMP 97.5; O2SAT 95
[2024-09-04 04:00] VITALS: BP 123/79; TEMP 97.3; O2SAT 98
[2024-09-04 12:00] VITALS: BP 117/66; TEMP 97.5; O2SAT 95
[2024-09-04 20:58] VITALS: BP 157/87; TEMP 97.9; O2SAT 97
[2024-09-05 03:54] VITALS: BP 96/61; TEMP 97.5; O2SAT 96
[2024-09-05 06:24] LABS: HEMATOCRIT 36.5 % (42.0-52.0); HEMOGLOBIN 11.7 g/dl (13.5-17.5); MEAN CORPUSCULAR HEMOGLOBIN 27.5 pg (27.0-33.0); MEAN CORPUSCULAR HGB CONC 32.1 g/dl (32.0-36.5); MEAN CORPUSCULAR VOLUME 85.9 fl (80.0-96.0); PLATELET COUNT, AUTOMATED 263 10^3/uL (150-450); RED BLOOD COUNT 4.25 10^6/uL (4.30-6.10); WHITE BLOOD COUNT 6.3 10^3/uL (4.0-10.0)
[2024-09-05 06:57] LABS: BLOOD UREA NITROGEN 31 MG/DL (9-23); CALCIUM LEVEL 9.4 MG/DL (8.3-10.6); CARBON DIOXIDE LEVEL 25 MMOL/L (20-31); CHLORIDE LEVEL 106 MMOL/L (98-107); CREATININE FOR GFR 1.06 MG/DL (0.70-1.30); GLOMERULAR FILTRATION RATE > 60.0 (>49); GLUCOSE, FASTING 195 MG/DL (74-106); MAGNESIUM LEVEL 1.7 MG/DL (1.8-2.4); POTASSIUM SERUM 4.3 MMOL/L (3.5-5.1); SODIUM LEVEL 138 MMOL/L (136-145)
[2024-09-05 08:28] VITALS: BP 144/71
[2024-09-05] MEDS ORDERED: BACT800T5 PO (11:44)
[2024-09-05 12:00] VITALS: BP 123/72; TEMP 97.7; O2SAT 96
== END 2024-09-05 12:27 | DRG 603 ==
LOC: M ED 10:39 → M ED INP 13:19 → M MSPAV 15:48
PROVIDERS: ADMIT Internal Medicine; ATTEND Family Medicine
PROC: 0H98XZX Drainage of Buttock Skin, External Approach, Diagnostic (ICD-10-PCS; principal; 2024-09-02 13:00)
DX: L02.31 Cutaneous abscess of buttock (principal); R78.81 Bacteremia; I12.9 Hypertensive chronic kidney disease with stage 1 through stage 4 chronic kidney disease, or unspecified chronic kidney disease; E11.51 Type 2 diabetes mellitus with diabetic peripheral angiopathy without gangrene; F39 Unspecified mood [affective] disorder; D50.9 Iron deficiency anemia, unspecified; E11.42 Type 2 diabetes mellitus with diabetic polyneuropathy; I95.9 Hypotension, unspecified; E03.9 Hypothyroidism, unspecified; B95.62 Methicillin resistant Staphylococcus aureus infection as the cause of diseases classified elsewhere; K21.9 Gastro-esophageal reflux disease without esophagitis; N18.9 Chronic kidney disease, unspecified; L03.317 Cellulitis of buttock; E11.22 Type 2 diabetes mellitus with diabetic chronic kidney disease; Z79.82 Long term (current) use of aspirin; Z79.890 Hormone replacement therapy; Z79.899 Other long term (current) drug therapy; Z79.84 Long term (current) use of oral hypoglycemic drugs; Z88.1 Allergy status to other antibiotic agents; Z89.512 Acquired absence of left leg below knee

== ENCOUNTER → 2024-09-09 | Outpatient (REF) | payer MEDICAID, MEDICARE ==
[~2024-09-09] MED LIST changes: +ACET1TAB55 PO; +BACT800T5 PO; +DOXY100C3 PO; +GLUC1KIT IM; +MIDO10TA PO; +ONDA-83 PO
[2024-09-09 11:01] LABS: BASO % 0.2 % (0.0-1.0); HEMATOCRIT 35.2 % (42.0-52.0); HEMOGLOBIN 11.2 g/dl (13.5-17.5); LYMPH # 1.1 10^3/uL (1.5-5.0); LYMPH % 18.4 % (24.0-44.0); MEAN CORPUSCULAR HEMOGLOBIN 27.6 pg (27.0-33.0); MEAN CORPUSCULAR HGB CONC 31.8 g/dl (32.0-36.5); MEAN CORPUSCULAR VOLUME 86.7 fl (80.0-96.0); MONO # 0.4 10^3/uL (0.0-0.8); MONO % 6.9 % (2.0-8.0); NEUTROPHILS # 4.4 10^3/uL (1.5-8.5); NEUTROPHILS % 73.5 % (36.0-66.0); PLATELET COUNT, AUTOMATED 240 10^3/uL (150-450); RED BLOOD COUNT 4.06 10^6/uL (4.30-6.10)
[2024-09-09 11:35] LABS: BLOOD UREA NITROGEN 28 MG/DL (9-23); CALCIUM LEVEL 9.4 MG/DL (8.3-10.6); CARBON DIOXIDE LEVEL 27 MMOL/L (20-31); CHLORIDE LEVEL 106 MMOL/L (98-107); CREATININE FOR GFR 1.23 MG/DL (0.70-1.30); GLOMERULAR FILTRATION RATE > 60.0 (>49); GLUCOSE, FASTING 229 MG/DL (74-106); POTASSIUM SERUM 4.7 MMOL/L (3.5-5.1); SODIUM LEVEL 134 MMOL/L (136-145)
== END ==
LOC: SKLAB4 07:00
PROVIDERS: ATTEND Internal Medicine
DX: L02.31 Cutaneous abscess of buttock (principal)

== ENCOUNTER → 2025-02-16 | Outpatient (REF) | payer MEDICARE, MEDICAID ==
[~2025-02-16] MED LIST changes: -MIDO10TA PO; +MIDO10TA3 PO
[2025-02-16 08:15] LABS: HEMOGLOBIN 12.1 g/dl (13.5-17.5); MEAN CORPUSCULAR HEMOGLOBIN 28.1 pg (27.0-33.0); MEAN CORPUSCULAR HGB CONC 32.7 g/dl (32.0-36.5); PLATELET COUNT, AUTOMATED 159 10^3/uL (150-450); WHITE BLOOD COUNT 5.3 10^3/uL (4.0-10.0)
[2025-02-16 08:40] LABS: ALBUMIN 3.5 G/DL (3.2-5.2); ALKALINE PHOSPHATASE 67 U/L (40-129); ALT/SGPT 13 U/L (7.0-40); AST/SGOT 10 U/L (<34); BILIRUBIN,TOTAL 0.3 MG/DL (0.3-1.2); BLOOD UREA NITROGEN 18 MG/DL (9-23); CALCIUM LEVEL 9.4 MG/DL (8.3-10.6); CARBON DIOXIDE LEVEL 26 MMOL/L (20-31); CHLORIDE LEVEL 106 MMOL/L (98-107); CREATININE FOR GFR 0.84 MG/DL (0.70-1.30); GLOMERULAR FILTRATION RATE > 60.0 (>49); GLUCOSE, FASTING 137 MG/DL (74-106); POTASSIUM SERUM 4.3 MMOL/L (3.5-5.1); SODIUM LEVEL 142 MMOL/L (136-145); TOTAL PROTEIN 6.7 G/DL (5.7-8.2)
[2025-02-16 08:41] LABS: THYROID STIMULATING HORMONE 2.423 uIU/ML (0.55-4.78)
[2025-02-16 08:55] LABS: HEMOGLOBIN A1c 8.4 % (4.0-6.0)
== END ==
LOC: SKLAB4 07:00
PROVIDERS: ATTEND Internal Medicine
DX: E03.9 Hypothyroidism, unspecified (principal); E11.9 Type 2 diabetes mellitus without complications; Z79.899 Other long term (current) drug therapy

== ENCOUNTER → 2025-02-17 | Outpatient (REF) | payer MEDICARE, MEDICAID ==
[2025-02-17 10:22] LABS: CHOLESTEROL RISK RATIO 4.75 (<5); HDL CHOLESTEROL 26.5 MG/DL (>40); LDL CHOLESTEROL 58.3 MG/DL (<100); MAGNESIUM LEVEL 1.7 MG/DL (1.8-2.4); NON-HDL-C 99.5 MG/DL
== END ==
LOC: SKLAB4 08:18
PROVIDERS: ATTEND Internal Medicine
DX: E78.5 Hyperlipidemia, unspecified (principal); E03.9 Hypothyroidism, unspecified

== ENCOUNTER → 2025-04-10 | Outpatient (REF) | payer MEDICARE, MEDICAID ==
[~2025-04-10] MED LIST changes: -GLUC1KIT IM; +GLUC1VIA14 IM
[2025-04-10 12:29] LABS: BASO % 0.4 % (0.0-1.0); EOS # 0.2 10^3/uL (0.0-0.5); EOS % 2.9 % (0.0-3.0); HEMATOCRIT 35.5 % (42.0-52.0); HEMOGLOBIN 11.5 g/dl (13.5-17.5); LYMPH # 1.1 10^3/uL (1.5-5.0); LYMPH % 13.5 % (24.0-44.0); MEAN CORPUSCULAR HEMOGLOBIN 28.4 pg (27.0-33.0); MEAN CORPUSCULAR HGB CONC 32.4 g/dl (32.0-36.5); MEAN CORPUSCULAR VOLUME 87.7 fl (80.0-96.0); MONO # 0.7 10^3/uL (0.0-0.8); MONO % 8.4 % (2.0-8.0); NEUTROPHILS # 5.9 10^3/uL (1.5-8.5); NEUTROPHILS % 74.4 % (36.0-66.0); PLATELET COUNT, AUTOMATED 188 10^3/uL (150-450); RED BLOOD COUNT 4.05 10^6/uL (4.30-6.10); WHITE BLOOD COUNT 7.9 10^3/uL (4.0-10.0)
[2025-04-10 12:56] LABS: BLOOD UREA NITROGEN 18 MG/DL (9-23); CALCIUM LEVEL 9.3 MG/DL (8.3-10.6); CARBON DIOXIDE LEVEL 28 MMOL/L (20-31); CHLORIDE LEVEL 102 MMOL/L (98-107); CREATININE FOR GFR 0.92 MG/DL (0.70-1.30); GLOMERULAR FILTRATION RATE > 90.0 (>49); GLUCOSE, FASTING 166 MG/DL (74-106); IRON (FE) 17 UG/DL (65-175); POTASSIUM SERUM 4.4 MMOL/L (3.5-5.1); SODIUM LEVEL 139 MMOL/L (136-145)
== END ==
LOC: SKLAB4 11:41
PROVIDERS: ATTEND Internal Medicine
DX: D64.9 Anemia, unspecified (principal); R29.6 Repeated falls

== ENCOUNTER → 2025-05-25 | Outpatient (REF) | payer MEDICARE, MEDICAID ==
[2025-05-25 08:28] LABS: HEMOGLOBIN A1c 7.6 % (4.0-6.0)
== END ==
LOC: SKLAB4 07:00
PROVIDERS: ATTEND Internal Medicine
DX: E11.9 Type 2 diabetes mellitus without complications (principal)

== ENCOUNTER → 2025-08-24 | Outpatient (REF) | payer MEDICARE, MEDICAID ==
[2025-08-24 11:07] LABS: PLATELET COUNT, AUTOMATED 174 10^3/uL (150-450)
[2025-08-24 11:45] LABS: ALT/SGPT 18.0 U/L (7.0-40); AST/SGOT 13.0 U/L (<34); CALCIUM LEVEL 8.9 MG/DL (8.3-10.6); CARBON DIOXIDE LEVEL 28.0 MMOL/L (20-31); CHLORIDE LEVEL 101.0 MMOL/L (98-107); CHOLESTEROL LEVEL 128.0 MG/DL (<200); CHOLESTEROL RISK RATIO 4.12 (<5); CREATININE FOR GFR 1.13 MG/DL (0.70-1.30); GLOMERULAR FILTRATION RATE 73.0 (>49); LDL CHOLESTEROL 69.4 MG/DL (<100); MAGNESIUM LEVEL 1.6 MG/DL (1.8-2.4); NON-HDL-C 97.0 MG/DL; POTASSIUM SERUM 4.7 MMOL/L (3.5-5.1); SODIUM LEVEL 138.0 MMOL/L (136-145); TRIGLYCERIDES LEVEL 138.0 MG/DL (<150)
[2025-08-24 12:53] LABS: ESTIMATED AVERAGE GLUCOSE 197.0 MG/DL (60-110)
== END ==
LOC: SKLAB4 07:00
PROVIDERS: ATTEND Internal Medicine
DX: E05.90 Thyrotoxicosis, unspecified without thyrotoxic crisis or storm (principal); E11.9 Type 2 diabetes mellitus without complications; E78.5 Hyperlipidemia, unspecified

== ENCOUNTER → 2025-10-11 | Outpatient (REF) | payer MEDICARE, MEDICAID | LOC: SKLAB4 07:00 | PROVIDERS: ATTEND Family Medicine | DX: M25.40 Effusion, unspecified joint (principal) ==

== ENCOUNTER → 2025-11-24 | Outpatient (REF) | payer MEDICARE, MEDICAID ==
[~2025-11-24] MED LIST changes: -BACTDSTA PO; +SULF-8 PO
[2025-11-24 11:39] LABS: ESTIMATED AVERAGE GLUCOSE 186.0 MG/DL (60-110)
== END ==
LOC: SKLAB4 07:00
PROVIDERS: ATTEND Family Medicine
DX: E11.9 Type 2 diabetes mellitus without complications (principal)